=== PATIENT | male | born 1965 | race Caucasian/White ===

== ENCOUNTER 2021-06-12 04:40 | Day surgery (SDC) | payer BC ==
[2021-06-09 11:37] VITALS: BMI 38.2
[2021-06-12] MEDS ORDERED: MIDAZOLAM HCL 2 MG/2 ML SINGLE DOSE VIAL ONE ×2 (13:24→13:50)
[2021-06-12 16:05] VITALS: BP 100/70; PULSE 72; TEMP 97.4
== END 2021-06-12 16:30 | disposition home or self-care (01) ==
LOC: JASU-SURG 04:40
PROVIDERS: ATTEND Urology
PROC: 0TF4XZZ Fragmentation in Left Kidney Pelvis, External Approach (ICD-10-PCS; principal; 2021-06-12 13:30)
DX: N20.0 Calculus of kidney (principal)
CPT/HCPCS: 82962

== ENCOUNTER 2022-03-16 09:10 | Emergency (ER) | payer BC ==
[2022-03-16 09:35] VITALS: BP 150/78; PULSE 90; TEMP 99; BMI 39.0
== END 2022-03-16 10:10 | disposition home or self-care (01) ==
LOC: FER 09:10
DX: M62.830 Muscle spasm of back (principal)
CPT/HCPCS: 99283-25

== ENCOUNTER 2022-07-17 14:17 | Emergency (ER) | payer BC ==
[2022-07-17] MEDS ORDERED: IBUPROFEN 400 MG TABLET (FP) PO ONE ×2 (14:25→14:43)
[2022-07-17] MEDS ORDERED: ONDANSETRON *ODT* 4 MG TABLET SL ONE (14:30)
[2022-07-17 14:39] VITALS: BP 158/91; PULSE 95; RESP 20; TEMP 98.4; BMI 38.3
[2022-07-17] MEDS ORDERED: ONDANSETRON *ODT* 4 MG TABLET ONE (14:43)
[2022-07-17 15:23] LABS: URINE MUCUS 1+
== END 2022-07-17 16:44 | disposition home or self-care (01) ==
LOC: FER 14:17
DX: K57.92 Diverticulitis of intestine, part unspecified, without perforation or abscess without bleeding (principal)
CPT/HCPCS: 74176-TC; 81003; 81015; 87086; 99284-25; Q0162